=== PATIENT | female | born 1965 | race American Indian/Alaskan Native ===

== ENCOUNTER 2017-11-25 10:54 | Emergency (ER) | payer MEDICARE ==
[2017-11-25 11:24] VITALS: BP 118/58
--- NOTE | 2017-11-25 14:14 | Emergency Department Report ---
ED Back Pain/Injury HPI - General Chief Complaint: Back Pain/Injury Stated Complaint: SCIATIC NERVE Time Seen by Provider: 11/25/17 13:59 Source: patient Limitations: No Limitations - History of Present Illness Initial Comments: 51-year-old female with history of sciatica presents to ED with complaints of flareup 1 week. Patient reports right lower back pain with radiation into right leg. Denies fever, numbness, tingling, weakness. Reports no relief with ibuprofen at home. MD Complaint: back pain -: week(s) Similar Symptoms Previously: Yes Radiation: right leg Severity: moderate Quality: sharp Consistency: intermittent Improves With: immobilization Worsens With: movement, walking Context: other (Pt reports she was helping set up chairs at [employer], believes this aggravated her condition.) Associated Symptoms: denies: weakness, numbness, difficulty urinating, incontinence, fever/chills, abdominal pain - Related Data Previous Rx's Medication Instructions Recorded Last Taken Type Methocarbamol [Robaxin-750] 750 mg PO Q6HR PRN #20 tablet 11/25/17 Unknown Rx Naproxen [Naprosyn] 500 mg PO BID #20 tablet 11/25/17 Unknown Rx predniSONE [Prednisone] 50 mg PO DAILY #5 tablet 11/25/17 Unknown Rx traMADol [Ultram] 50 mg PO Q6HR PRN #7 tablet 11/25/17 Unknown Rx Allergies Allergy/AdvReac Type Severity Reaction Status Date / Time Latex, Natural Rubber Allergy Rash Verified 11/25/17 11:25 Penicillins Allergy Rash Verified 11/25/17 11:25 contrast dye Allergy Rash Uncoded 11/25/17 11:25 ED Review of Systems ROS: Stated complaint: SCIATIC NERVE Other details as noted in HPI Comment: All other systems reviewed and negative Constitutional: denies: chills, fever Gastrointestinal: denies: abdominal pain Genitourinary: denies: dysuria, other (incontinence) Musculoskeletal: as per HPI, back pain Neurological: denies: weakness, numbness, paresthesias ED Past Medical Hx - Past Medical History Previous Medical History?: Yes Hx Hypertension: Yes Hx Asthma: Yes Additional medical history: brain aneurysm x3 - Surgical History Past Surgical History?: Yes Additional Surgical History: , hernia repair, brain aneurysm x3 - Social History Smoking Status: Current Every Day Smoker Substance Use Type: None - Medications Home Medications: Home Medications Medication Instructions Recorded Confirmed Last Taken Type Methocarbamol [Robaxin-750] 750 mg PO Q6HR PRN #20 tablet 11/25/17 Unknown Rx Naproxen [Naprosyn] 500 mg PO BID #20 tablet 11/25/17 Unknown Rx predniSONE [Prednisone] 50 mg PO DAILY #5 tablet 11/25/17 Unknown Rx traMADol [Ultram] 50 mg PO Q6HR PRN #7 tablet 11/25/17 Unknown Rx ED Physical Exam - General Limitations: No Limitations General appearance: alert, in no apparent distress - Head Head exam: Present: atraumatic, normocephalic - Eye Eye exam: Present: normal appearance - ENT ENT exam: Present: mucous membranes moist - Neck Neck exam: Present: normal inspection - Respiratory Respiratory exam: Present: normal lung sounds bilaterally. Absent: respiratory distress - Cardiovascular Cardiovascular Exam: Present: regular rate, tachycardia (slightly tachycardic) - GI/Abdominal GI/Abdominal exam: Present: soft. Absent: tenderness - Extremities Exam Extremities exam: Present: normal inspection - Back Exam Back exam: Present: paraspinal tenderness (tenderness present in right lower lumbar region at approx L4-5) - Neurological Exam Neurological exam: Present: alert, oriented X3, motor sensory deficit - Psychiatric Psychiatric exam: Present: normal affect, normal mood - Skin Skin exam: Present: warm, dry, intact, normal color, rash ED Course Vital Signs 11/25/17 11:17 Temperature 99 F Pulse Rate 107 H Respiratory 20 Rate Blood Pressure 118/58 O2 Sat by Pulse 100 Oximetry ED Medical Decision Making - Medical Decision Making History of female here with exacerbation of right sciatica. No symptoms or exam findings consistent with cauda equina. We'll give prescriptions for pain meds. Patient advised follow-up as outpatient. Return precautions given. - Differential Diagnosis sciatica Critical care attestation.: If time is entered above; I have spent that time in minutes in the direct care of this critically ill patient, excluding procedure time. ED Disposition Clinical Impression: Right-sided low back pain with sciatica Disposition: TO HOME OR SELFCARE Is pt being admited?: No Condition: Stable Instructions: Lumbar Radiculopathy (ED) Additional Instructions: Return to ER if pain worsens, you develop fever, you experience any significant weakness or numbness in legs, you are unable to urinate or experience urinary incontinence. Referrals: MASOUD RUIZ MD [Primary Care Provider] - 3-5 Days HÉCTOR MCDANIEL MD [Staff Physician] - 3-5 Days
== END 2017-11-25 14:33 | disposition home or self-care (01) ==
LOC: ED 10:54
DX: M54.41 Lumbago with sciatica, right side (principal); I10 Essential (primary) hypertension; J45.909 Unspecified asthma, uncomplicated; F17.200 Nicotine dependence, unspecified, uncomplicated
CPT/HCPCS: 99282

== ENCOUNTER 2018-04-01 09:30 | Emergency (ER) | payer MEDICARE ==
[2018-04-01 09:42] VITALS: BP 130/60
[2018-04-01] MEDS ORDERED: SOLU-Medrol IM ONE (09:58)
[2018-04-01] MEDS ORDERED: PROVENTIL IH ONE (09:58)
[2018-04-01] MEDS ORDERED: ATROVENT IH ONE (09:58)
--- NOTE | 2018-04-01 10:08 | Emergency Department Report ---
- General Chief Complaint: Upper Respiratory Infection Stated Complaint: COUGH/WHEEZING/BODY ACHES Time Seen by Provider: 04/01/18 09:49 Source: patient Mode of arrival: Ambulatory Limitations: No Limitations - History of Present Illness Initial Comments: 51-year-old female with history of asthma who presents to ED with productive cough, wheezing, runny nose, body aches 6 days. Patient states she did get her flu shot 2 months ago. MD Complaint: cough, rhinorrhea -: days(s) (6) Severity: moderate Consistency: constant Improves With: nothing Worsens With: nothing Associated Symptoms: myalgias, rhinorrhea, cough. denies: fever - Related Data Previous Rx's Medication Instructions Recorded Last Taken Type Methocarbamol [Robaxin-750] 750 mg PO Q6HR PRN #20 tablet 11/25/17 Unknown Rx Naproxen [Naprosyn] 500 mg PO BID #20 tablet 11/25/17 Unknown Rx predniSONE [Prednisone] 50 mg PO DAILY #5 tablet 11/25/17 Unknown Rx traMADol [Ultram] 50 mg PO Q6HR PRN #7 tablet 11/25/17 Unknown Rx Albuterol Sulfate [Albuterol 0.63% 0.63 mg IH TID PRN #90 vial 04/01/18 Unknown Rx NEBS] Benzonatate [Tessalon Perles] 100 mg PO Q8HR PRN #20 capsule 04/01/18 Unknown Rx predniSONE [Prednisone] 50 mg PO DAILY #5 tablet 04/01/18 Unknown Rx Allergies Allergy/AdvReac Type Severity Reaction Status Date / Time Latex, Natural Rubber Allergy Rash Verified 11/25/17 11:25 Penicillins Allergy Rash Verified 11/25/17 11:25 contrast dye Allergy Rash Uncoded 11/25/17 11:25 ED Review of Systems ROS: Stated complaint: COUGH/WHEEZING/BODY ACHES Other details as noted in HPI Comment: All other systems reviewed and negative Constitutional: denies: chills, fever Respiratory: cough, wheezing Cardiovascular: denies: chest pain Gastrointestinal: denies: nausea, vomiting Musculoskeletal: myalgia ED Past Medical Hx - Past Medical History Hx Hypertension: Yes Hx Asthma: Yes Additional medical history: brain aneurysm x3 - Surgical History Additional Surgical History: , hernia repair, brain aneurysm x3 - Social History Smoking Status: Current Every Day Smoker Substance Use Type: None - Medications Home Medications: Home Medications Medication Instructions Recorded Confirmed Last Taken Type Methocarbamol [Robaxin-750] 750 mg PO Q6HR PRN #20 tablet 11/25/17 Unknown Rx Naproxen [Naprosyn] 500 mg PO BID #20 tablet 11/25/17 Unknown Rx predniSONE [Prednisone] 50 mg PO DAILY #5 tablet 11/25/17 Unknown Rx traMADol [Ultram] 50 mg PO Q6HR PRN #7 tablet 11/25/17 Unknown Rx Albuterol Sulfate [Albuterol 0.63% 0.63 mg IH TID PRN #90 vial 04/01/18 Unknown Rx NEBS] Benzonatate [Tessalon Perles] 100 mg PO Q8HR PRN #20 capsule 04/01/18 Unknown Rx predniSONE [Prednisone] 50 mg PO DAILY #5 tablet 04/01/18 Unknown Rx ED Physical Exam - General Limitations: No Limitations General appearance: alert, in no apparent distress - Head Head exam: Present: atraumatic, normocephalic - Eye Eye exam: Present: normal appearance - ENT ENT exam: Present: mucous membranes moist - Neck Neck exam: Present: normal inspection - Respiratory Respiratory exam: Present: normal lung sounds bilaterally. Absent: respiratory distress - Cardiovascular Cardiovascular Exam: Present: regular rate, normal rhythm - GI/Abdominal GI/Abdominal exam: Present: soft. Absent: distended - Extremities Exam Extremities exam: Present: normal inspection - Neurological Exam Neurological exam: Present: alert, oriented X3 - Psychiatric Psychiatric exam: Present: normal affect, normal mood - Skin Skin exam: Present: warm, dry, intact, normal color ED Course Vital Signs 04/01/18 04/01/18 09:39 10:05 Temperature 98.5 F Pulse Rate 78 Pulse Rate [ 87 Anterior Bilateral Throughout] Respiratory 19 Rate Respiratory 20 Rate [Anterior Bilateral Throughout] Blood Pressure 130/60 O2 Sat by Pulse 100 Oximetry ED Medical Decision Making - Radiology Data Radiology results: report reviewed, image reviewed - Medical Decision Making Patient on much better. No respiratory distress present. Chest x-ray negative, no fluctuance or pulmonary edema present. Likely viral URI with asthma exacerbation. Will discharge on prednisone and Tessalon Perles. Outpatient follow-up recommended. Return precautions given. - Differential Diagnosis URI, influenza, pneumonia Critical care attestation.: If time is entered above; I have spent that time in minutes in the direct care of this critically ill patient, excluding procedure time. ED Disposition Clinical Impression: URI (upper respiratory infection), Asthma with acute exacerbation Disposition: - TO HOME OR SELFCARE Is pt being admited?: No Condition: Stable Instructions: Asthma (ED), Upper Respiratory Infection (ED) Prescriptions: Albuterol Sulfate [Albuterol 0.63% NEBS] 0.63 mg IH TID PRN #90 vial PRN Reason: Wheezing Benzonatate [Tessalon Perles] 100 mg PO Q8HR PRN #20 capsule PRN Reason: Cough predniSONE [Prednisone] 50 mg PO DAILY #5 tablet Referrals: PRIMARY CARE, [Primary Care Provider] - 3-5 Days Time of Disposition: 11:39
--- NOTE | 2018-04-01 11:16 | XRay Report ---
CHEST 2 VIEWS INDICATION: Cough. COMPARISON: None similar. FINDINGS: PA and lateral chest radiographs demonstrate normal cardiomediastinal silhouette. Clear lungs. Intact bones. CONCLUSION: No acute disease in the chest. Thank you for the opportunity to participate in this patient's care.
== END 2018-04-01 11:50 | disposition home or self-care (01) ==
LOC: ED 09:30
DX: J45.901 Unspecified asthma with (acute) exacerbation (principal); J06.9 Acute upper respiratory infection, unspecified; F17.200 Nicotine dependence, unspecified, uncomplicated; I10 Essential (primary) hypertension; Z91.040 Latex allergy status; Z91.041 Radiographic dye allergy status; Z88.0 Allergy status to penicillin
CPT/HCPCS: 71046; 94640; 99283; J2930; 96372

== ENCOUNTER 2018-05-09 17:33 | Emergency (ER) | payer MEDICARE ==
[2018-05-09 18:11] VITALS: BP 141/50
--- NOTE | 2018-05-09 18:12 | Emergency Department Report ---
Chief Complaint: Extremity Injury, Lower Stated Complaint: CRAMPS IN FEET AND TOES/PAIN Time Seen by Provider: 05/09/18 18:09 - HPI History of Present Illness: B FEET CRAMPS WONT GO AWAY TODAY USUALLY DOES NO TRAUMA WHEEZING FATIGUE RX OLMESARTAN ASA FIORICET STATIN VENTOLI PMH HTN HPLD ASTHMA CEREBRAL ANEURYSM--SAH PCP ALISHA HARDWICK COMPLETED MSE screening note: Focused history and physical exam performed. Due to findings the following was ordered: ED Disposition for MSE Condition: Stable
[2018-05-09 19:11] LABS: Hematocrit 39.9 % (30.3-42.9); Hemoglobin 13.2 gm/dl (10.1-14.3); Mean Corpuscular HGB Conc 33 % (30-34); Mean Corpuscular Volume 90 fl (79-97); Platelet Count 238 K/mm3 (140-440); Red Blood Count 4.43 M/mm3 (3.65-5.03); Red Cell Distribution Width 15.5 % (13.2-15.2)
[2018-05-09 19:28] LABS: Alanine Aminotransferase 21 units/L (7-56); Albumin 4.3 g/dL (3.9-5); BUN/Creatinine Ratio 24; Blood Urea Nitrogen 17 mg/dL (7-17); Calcium 8.9 mg/dL (8.4-10.2); Hemolysis Index 88
[2018-05-09 20:56] LABS: Bilirubin,Urine NEG (Negative); Blood,Urine NEG (Negative); Color,Urine Yellow (Yellow); Protein,Urine <15 mg/dL mg/dL (Negative); RBC,Urine < 1.0 /HPF (0.0-6.0); Urobilinogen,Urine < 2.0 mg/dL (<2.0)
[2018-05-09] MEDS ORDERED: DUONEB *Not for PRN Use IH ONE (21:07)
[2018-05-09] MEDS ORDERED: IBUPROFEN PO ONE (21:09)
[2018-05-09] MEDS ORDERED: FLEXERIL PO ONE (21:09)
--- NOTE | 2018-05-09 21:14 | Emergency Department Report ---
HPI - General Chief Complaint: Extremity Injury, Lower Time Seen by Provider: 05/09/18 18:09 - HPI HPI: Flores 25 The patient is a 52-year-old female presenting with a chief complaint of bilateral foot spasms. The patient states intermittently since 2007 she would have spasms both feet. The patient states today her spasms return should he experience them every 15 minutes. Patient denies any recent trauma. Patient denies history of fever. Patient missed occasional cough nausea vomiting and chills. Patient denies rhinorrhea Location: Bilateral feet Duration: Most recent episode intermittent times one day Quality: Spasm Severity:. Moderate Modifying factors: [see above] Context: [see above] Mode of transportation: [not driving] ED Past Medical Hx - Past Medical History Hx Hypertension: Yes Hx Asthma: Yes Additional medical history: brain aneurysm x3 - Surgical History Past Surgical History?: Yes Additional Surgical History: , hernia repair, brain aneurysm x3 - Family History Family history: no significant - Social History Smoking Status: Current Every Day Smoker (1/2 pack per day) Substance Use Type: None (denies illicit drug use) - Medications Home Medications: Home Medications Medication Instructions Recorded Confirmed Last Taken Type Methocarbamol [Robaxin-750] 750 mg PO Q6HR PRN #20 tablet 11/25/17 Unknown Rx Naproxen [Naprosyn] 500 mg PO BID #20 tablet 11/25/17 Unknown Rx predniSONE [Prednisone] 50 mg PO DAILY #5 tablet 11/25/17 Unknown Rx traMADol [Ultram] 50 mg PO Q6HR PRN #7 tablet 11/25/17 Unknown Rx Albuterol Sulfate [Albuterol 0.63% 0.63 mg IH TID PRN #90 vial 04/01/18 Unknown Rx NEBS] Benzonatate [Tessalon Perles] 100 mg PO Q8HR PRN #20 capsule 04/01/18 Unknown Rx predniSONE [Prednisone] 50 mg PO DAILY #5 tablet 04/01/18 Unknown Rx ALBUTEROL Inhaler (OR & NICU) 2 puff IH QID PRN #1 inhalation 05/09/18 Unknown Rx [Proair] Cyclobenzaprine [Flexeril] 10 mg PO TID PRN #20 tablet 05/09/18 Unknown Rx HYDROcodone/APAP 5-325 [[place] 1 - 2 each PO Q6HR PRN #10 tablet 05/09/18 Unknown Rx 5/325] Ibuprofen [Motrin 800 MG tab] 800 mg PO Q8HR PRN #20 tablet 05/09/18 Unknown Rx predniSONE [Deltasone] 60 mg PO QDAY #9 tab 05/09/18 Unknown Rx ED Review of Systems ROS: Stated complaint: CRAMPS IN FEET AND TOES/PAIN Other details as noted in HPI Constitutional: chills. denies: fever Eyes: denies: eye pain ENT: denies: throat pain Respiratory: cough, wheezing Cardiovascular: denies: chest pain Endocrine: no symptoms reported Gastrointestinal: nausea, vomiting Genitourinary: denies: dysuria Musculoskeletal: myalgia Neurological: denies: headache Physical Exam - Physical Exam Vital Signs: Vital Signs 05/09/18 18:09 Temperature 99 F Pulse Rate 85 Respiratory 16 Rate Blood Pressure 141/50 [Left] O2 Sat by Pulse 99 Oximetry Physical Exam: GENERAL: The patient is well-developed well-nourished female lying on stretcher not appear to be in acute distress. [] HEENT: Normocephalic. Atraumatic. Extraocular motions are intact. Patient has moist mucous membranes. NECK: Supple. Trachea midline CHEST/LUNGS: Faint end expiratory wheeze. There is no respiratory distress noted. HEART/CARDIOVASCULAR: Regular. There is no tachycardia. There is no gallop rub or murmur. 2+ bilateral DPs ABDOMEN: Abdomen is soft, nontender. Patient has normal bowel sounds. There is no abdominal distention. SKIN: There is no rash. There is no edema. There is no diaphoresis. NEURO: The patient is awake, alert, and oriented. The patient is cooperative. The patient has normal speech MUSCULOSKELETAL: There is no evidence of acute injury. ED Course Vital Signs 05/09/18 18:09 Temperature 99 F Pulse Rate 85 Respiratory 16 Rate Blood Pressure 141/50 [Left] O2 Sat by Pulse 99 Oximetry ED Medical Decision Making - Lab Data Result diagrams: 05/09/18 18:36 05/09/18 18:36 Laboratory Tests 05/09/18 05/09/18 05/09/18 18:36 18:36 20:46 WBC 7.8 RBC 4.43 Hgb 13.2 Hct 39.9 MCV 90 MCH 30 MCHC 33 RDW 15.5 H Plt Count 238 Sodium 138 Potassium 4.0 Chloride 102.2 Carbon Dioxide 24 Anion Gap 16 BUN 17 Creatinine 0.7 Estimated GFR > 60 BUN/Creatinine Ratio 24 Glucose 89 Calcium 8.9 Magnesium 1.90 Total Bilirubin 0.20 AST 23 ALT 21 Alkaline Phosphatase 58 Total Protein 6.9 Albumin 4.3 Albumin/Globulin Ratio 1.7 Urine Color Yellow Urine Turbidity Slightly-cloudy Urine pH 6.0 Ur Specific [place] 1.012 Urine Protein <15 mg/dl Urine Glucose (UA) Neg Urine Ketones Neg Urine Blood Neg Urine Nitrite Neg Urine Bilirubin Neg Urine Urobilinogen < 2.0 Ur Leukocyte Esterase Neg Urine WBC (Auto) 1.0 Urine RBC (Auto) < 1.0 U Epithel Cells (Auto) 11.0 - Radiology Data Radiology results: image reviewed (chest x-ray) interpreted by me: Chest x-ray-no focal infiltrates, no pneumothorax - Differential Diagnosis hypokalemia, hypocalcemia, muscle spasm, asthma exacerbation, pneumonia Critical care attestation.: If time is entered above; I have spent that time in minutes in the direct care of this critically ill patient, excluding procedure time. ED Disposition Clinical Impression: Muscle spasm, Asthma exacerbation Disposition: DC- TO HOME OR SELFCARE Is pt being admited?: No Does the pt Need Aspirin: No Condition: Stable Instructions: Asthma (ED) Additional Instructions: Return to the emergency department immediately should you develop worsening symptoms, fever, inability to tolerate food or liquid or any other concerns. Prescriptions: ALBUTEROL Inhaler (OR & NICU) [Proair] 2 puff IH QID PRN #1 inhalation PRN Reason: Shortness Of Breath Cyclobenzaprine [Flexeril] 10 mg PO TID PRN #20 tablet PRN Reason: Muscle Spasm HYDROcodone/APAP 5-325 [[place] 5/325] 1 - 2 each PO Q6HR PRN #10 tablet PRN Reason: Pain Ibuprofen [Motrin 800 MG tab] 800 mg PO Q8HR PRN #20 tablet PRN Reason: Pain, Moderate (4-6) predniSONE [Deltasone] 60 mg PO QDAY #9 tab Referrals: PRIMARY CARE, [Primary Care Provider] - 3-5 Days Time of Disposition: 21:45
--- NOTE | 2018-05-09 22:39 | XRay Report ---
FINAL REPORT EXAM: XR CHEST ROUTINE 2V HISTORY: cough TECHNIQUE: 2 views of the chest. PRIORS: None. FINDINGS: The cardiomediastinal silhouette appears normal. The lungs are clear. The bones and soft tissues are unremarkable. IMPRESSION: No evidence of acute cardiopulmonary disease
== END 2018-05-09 21:52 | disposition home or self-care (01) ==
LOC: ED 17:33
DX: M62.838 Other muscle spasm (principal); J45.901 Unspecified asthma with (acute) exacerbation; I10 Essential (primary) hypertension; F17.200 Nicotine dependence, unspecified, uncomplicated
CPT/HCPCS: 36415; 71046; 80053; 81001; 83735; 85027; 94640